=== PATIENT | male | born 1990 | race Caucasian/White ===

== ENCOUNTER 2018-12-23 09:30 | Emergency (ER) | payer MEDICAID, OTHER ==
[~2018-12-23] VITALS: Ht 172.7 cm; Wt 65.3 kg
[~2018-12-23 09:30] MED LIST: BUSP30TA PO; IBUP-1223 PO; OXYC-302 PO; TRAM50TA2 PO
[2018-12-23 10:31] VITALS: BP 105/73
--- NOTE | 2018-12-23 10:31 | NUR ---
LATE ENTRY 1010, DR TERAN AT BEDSIDE. PT BROUGHT IN BY FATHER FROM HOME. 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 ATTEMPTED TO ADMIT PT TO [facility] BUT WAS DECLINED UNTIL MEDICALLY CLEARED. FATHER BROUGHT PT TO ED. PT RPTS THAT HE DID TAKE CLONIDINE AND FLEXERIL THIS MORNING. PT ASSESSMENT REVIEWED, QUESTIONS ANSWERED AND ORDERS REC'D.
--- NOTE | 2018-12-23 10:36 | NUR ---
FATHER AT BEDSIDE. MONITORS IN PLACE AND CALL LIGHT W/I REACH.
[2018-12-23 10:39] LABS: BASOPHILS # (AUTO) 0.01 x10^3/uL (0-0.1); BASOPHILS % (AUTO) 0 % (0-1); EOSINOPHILS # (AUTO) 0.01 x10^3/uL (0-0.4); EOSINOPHILS % (AUTO) 0 % (1-7); LYMPHOCYTES # (AUTO) 1.09 x10^3/uL (1-3.4); LYMPHOCYTES % (AUTO) 10 % (22-44); MD NO; MEAN CORPUSCULAR HEMOGLOBIN 30.1 pg (27.5-34.5); MEAN CORPUSCULAR HGB CONC 33.4 g/dL (33.2-36.2); MEAN CORPUSCULAR VOLUME 90.1 fL (81-97); MEAN PLATELET VOLUME 7.4 fL (7.4-10.4); MONOCYTES # (AUTO) 0.63 x10^3/uL (0.2-0.8); MONOCYTES % (AUTO) 6 % (2-9); NEUTROPHILS # (AUTO) 8.84 x10^3/uL (1.8-6.8); NEUTROPHILS % (AUTO) 84 % (42-75); PLATELET COUNT 301 x10^3/uL (130-400); RED BLOOD COUNT 5.07 x10^6/uL (4.38-5.82); RED CELL DISTRIBUTION WIDTH 12.9 % (9.4-14.8)
[2018-12-23 10:49] LABS: ALANINE AMINOTRANSFERASE 26 U/L (12-78); ALBUMIN 4.2 g/dL (3.4-5.0); ANION GAP 6 mmol/L (5-15); CALCIUM 10.4 mg/dL (8.5-10.1); CHLORIDE 111 mmol/L (98-107)
[2018-12-23 10:51] LABS: ALKALINE PHOSPHATASE 86 U/L (45-117); BILIRUBIN,TOTAL 0.4 mg/dL (0.2-1.0)
[2018-12-23 10:52] LABS: SALICYLATE LEVEL < 1.7 mg/dL (2.8-20.0)
--- NOTE | 2018-12-23 11:36 | NUR ---
PT MORE AWAKE, OOB AND AMBULATED IN HALLWAY. DR TERAN AT BEDSIDE, LAB RESULTS DISCUSSED. PT AWARE URINE IS STILL NEEDED FOR DOA. PT TO BE MEDICALLY CLEARED AND FATHER WILL TRANSPORT TO AN ACCEPTING [facility].
--- NOTE | 2018-12-23 11:37 | NUR ---
DIET TRAY ORDERED. WATER AT BEDSIDE. PT ENCOURAGED TO DRINK
[2018-12-23 12:51] LABS: AMPHETAMINE SCREEN, URINE Negative (Negative); BARBITURATE SCREEN, URINE Negative (Negative); BENZODIAZEPINE SCREEN, URINE Positive (Negative); CANNABINOID SCREEN, URINE Negative (Negative); COCAINE SCREEN, URINE Positive (Negative); METHADONE SCREEN, URINE Negative (Negative); OPIATE SCREEN, URINE Positive (Negative)
--- NOTE | 2018-12-23 12:58 | NUR ---
Patient/Caregiver given discharge instructions and they have confirmed that they understand the instructions. Patient ambulatory with steady gait. father to transport patient to [facility]
== END 2018-12-23 12:59 | disposition home or self-care (01) ==
LOC: ED 12:07
DX: F11.229 Opioid dependence with intoxication, unspecified (principal); F13.20 Sedative, hypnotic or anxiolytic dependence, uncomplicated; Z72.9 Problem related to lifestyle, unspecified
CPT/HCPCS: 36415; 80053; 80307; 85025; 99283